=== PATIENT | female | born 1990 | race African-American/Black ===

== ENCOUNTER 2017-11-25 20:38 | Emergency (ER) | payer OTHER | END 2017-11-25 21:31 | disposition home or self-care (01) | LOC: NAV ERS 20:38 | DX: R21 Rash and other nonspecific skin eruption (principal); E66.9 Obesity, unspecified | CPT/HCPCS: 99282 ==

== ENCOUNTER 2018-05-01 02:13 | Emergency (ER) | payer OTHER ==
[2018-05-01] MEDS ORDERED: methylPREDNISolone Sod Succ/PF 125 MG/2 ML VIAL ONE (02:39)
== END 2018-05-01 02:55 | disposition home or self-care (01) ==
LOC: NAV ERS 02:13
DX: J02.0 Streptococcal pharyngitis (principal); J45.909 Unspecified asthma, uncomplicated; E66.9 Obesity, unspecified; Z79.51 Long term (current) use of inhaled steroids
CPT/HCPCS: 96372; J2930

== ENCOUNTER 2019-01-16 17:58 | Emergency (ER) | payer MEDICAID, OTHER | END 2019-01-16 18:45 | disposition home or self-care (01) | LOC: NAV ERS 17:58 | DX: R07.9 Chest pain, unspecified (principal); J45.909 Unspecified asthma, uncomplicated; Z79.51 Long term (current) use of inhaled steroids; Z79.899 Other long term (current) drug therapy | CPT/HCPCS: 99284 ==

== ENCOUNTER 2019-08-28 20:33 | Emergency (ER) | payer MEDICAID, SELFPAY ==
[2019-08-28] MEDS ORDERED: Ibuprofen 200 MG TAB ONE (20:58)
--- NOTE | 2019-08-28 21:25 | RAD ---
Exam:3 views left ankle HISTORY: Pain. COMPARISON: None FINDINGS: Intact ankle mortise. Preserved joint spaces. No fracture. Lateral soft tissue swelling. IMPRESSION: Lateral soft tissue swelling, without fracture.
--- NOTE | 2019-08-28 21:34 | RAD ---
Exam:4 views left knee HISTORY: Fall. Pain. COMPARISON: None FINDINGS: Preserved joint spaces. No joint effusion. No fracture. IMPRESSION: No fracture.
== END 2019-08-28 21:55 | disposition home or self-care (01) ==
LOC: NAV ERS 20:33
DX: S93.402A Sprain of unspecified ligament of left ankle, initial encounter (principal); J45.909 Unspecified asthma, uncomplicated; Z79.51 Long term (current) use of inhaled steroids; X50.1XXA Overexertion from prolonged static or awkward postures, initial encounter

== ENCOUNTER 2021-05-07 13:17 | Emergency (ER) | payer OTHER, SELFPAY ==
[2021-05-08 13:58] LABS: SARS-CoV-2 PCR by NAA DETECTED (NotDetected)
== END 2021-05-07 14:50 | disposition home or self-care (01) ==
LOC: NAV ERS 13:17
DX: U07.1 COVID-19 (principal); J45.909 Unspecified asthma, uncomplicated; E66.9 Obesity, unspecified
CPT/HCPCS: 87081; 87430; 99284; U0003; U0005

== ENCOUNTER 2022-06-26 20:55 | Emergency (ER) | payer OTHER, SELFPAY | END 2022-06-26 22:00 | disposition home or self-care (01) | LOC: NAV ERS 20:55 | DX: S93.412A Sprain of calcaneofibular ligament of left ankle, initial encounter (principal); E66.9 Obesity, unspecified; J45.909 Unspecified asthma, uncomplicated; Z79.899 Other long term (current) drug therapy; X50.1XXA Overexertion from prolonged static or awkward postures, initial encounter ==

== ENCOUNTER 2022-10-22 08:07 | Emergency (ER) | payer OTHER ==
[2022-10-22] MEDS ORDERED: Acetaminophen 500 MG TAB ONE (08:33)
[2022-10-22] MEDS ORDERED: predniSONE 20 MG TAB ONE (08:33)
== END 2022-10-22 08:39 | disposition home or self-care (01) ==
LOC: NAV ERS 08:07
DX: T65.91XA Toxic effect of unspecified substance, accidental (unintentional), initial encounter (principal); R51.9 Headache, unspecified; E66.9 Obesity, unspecified; J45.909 Unspecified asthma, uncomplicated
CPT/HCPCS: 99283; J7512

== ENCOUNTER 2023-02-12 12:25 | Emergency (ER) | payer BC, OTHER | END 2023-02-12 12:56 | disposition home or self-care (01) | LOC: NAV ERS 12:25 | DX: J01.90 Acute sinusitis, unspecified (principal); J45.909 Unspecified asthma, uncomplicated; E66.9 Obesity, unspecified | CPT/HCPCS: 99283 ==

== ENCOUNTER 2023-08-01 21:03 | Emergency (ER) | payer BC, SELFPAY | END 2023-08-01 21:46 | disposition home or self-care (01) | LOC: NAV ERS 21:03 | DX: J06.9 Acute upper respiratory infection, unspecified (principal); J04.0 Acute laryngitis; H69.93 Unspecified Eustachian tube disorder, bilateral; J45.909 Unspecified asthma, uncomplicated | CPT/HCPCS: 99283 ==

== ENCOUNTER 2024-02-29 11:02 | Emergency (ER) | payer SELFPAY | END 2024-02-29 12:06 | disposition home or self-care (01) | LOC: NAV ERS 11:02 | DX: S73.102A Unspecified sprain of left hip, initial encounter (principal); J45.909 Unspecified asthma, uncomplicated; Z79.899 Other long term (current) drug therapy; X50.1XXA Overexertion from prolonged static or awkward postures, initial encounter | CPT/HCPCS: 99283 ==

== ENCOUNTER 2024-07-15 01:07 | Emergency (ER) | payer SELFPAY ==
[2024-07-15] MEDS ORDERED: methylPREDNISolone Acetate 40 mg/ml Vial ONE (01:21)
[2024-07-15] MEDS ORDERED: Ipratropium/Albuterol 3 ML NEB ONE (01:21)
== END 2024-07-15 02:00 | disposition home or self-care (01) ==
LOC: NAV ERS 01:07
DX: J45.901 Unspecified asthma with (acute) exacerbation (principal); R03.0 Elevated blood-pressure reading, without diagnosis of hypertension; Z79.899 Other long term (current) drug therapy
CPT/HCPCS: 71046; 94640; 96372; J1010; J7620